=== PATIENT | male | born 1970 | race Caucasian/White ===

== ENCOUNTER 2025-01-31 14:55 | Outpatient (AMB) | payer BC, SELFPAY ==
--- NOTE | 2025-01-31 15:12 | A.OFFPC_ITS ---
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 Intake Note: patient is scheduled to establish care with pcp Craft Center Director Required: No Allergies No Known Allergies Allergy (Verified 01/31/25 15:14) Tobacco use date assessed: 01/31/25 Dental Screening Dental Screen Date: 01/31/25 Did you have a dental visit in the last 12 months?: Yes Did you have a dental problem in the last 6 months where you did not have access to dental care?: No Was dental information given to patient?: Patient has dentist HPI FINISHING INSPECTOR- requesting CPE HPI Details New patient Prior PCP: Dr Asuncion Esteves [place] Last office visit/CPE: Acute issue(s): Dizziness/Brain Fog/Cervicalgia. Imaging including MRI Neg. Dx initially BPPV. Improved with Chiropractic PMHx: Dizziness - Resolved. Vit D Def. SurgHx: None. [place] 5 yrs ago and due - has appt. FHx: GF: Colon [place]. SocHx: Retired. Has 1 son and Moved to [place] to be closer. Nonsmoker, EtOH 1 beer daily. No drugs HPI Comments History of Present Illness Details Documentation assistance for Mahendra Saenz MD, was provided by Holland Davalos,? Airplane Tester on 01/31/2025 at 3:49 PM EST. I, Dr. Saenz, have read, observed, and verified documentation. [facility] Medical History (Updated 01/31/25 @ 15:55 by Holland Davalos) Dizziness Hx of vertigo Family History (Updated 01/31/25 @ 15:19 by HE Bernard) Maternal Grandfather Colon cancer Paternal Grandmother Colon cancer Social History (Updated 01/31/25 @ 15:20 by HE Bernard) Housing: House Patient Tobacco Use Status: Never used Tobacco e-Cigarette/Vaping Use: Never Used Use of substances other than those prescribed or required for medical reasons: No service: No Current occupational status: employed Current occupation: technical support 1 software engineer Current occupational exposures/hazards: No Cognitive needs: No Hearing needs: No Vision needs: Yes Questionnaire PHQ-9 Over the last 2 weeks, how often have you been bothered by any of the following problems? 1. Little interest or pleasure in doing things: not at all 2. Feeling down, depressed, or hopeless: not at all 3. Trouble falling or staying asleep, or sleeping too much: not at all 4. Feeling tired or having little energy: not at all 5. Poor appetite or overeating: not at all 6. Feeling bad about yourself - or that you are a failure or have let yourself or your family down: not at all 7. Trouble concentrating on things, such as reading the newspaper or watching television: not at all 8. Moving or speaking so slowly that other people could have noticed. Or the opposite - being so fidgety or restless that you have been moving around a lot more than usual: not at all 9. Thoughts that you would be better off or of hurting yourself in some way: not at all Total score: 0 Depression Screening Interpretation: Negative Depression Screening Done: Yes 36815 - PHQ-9 Billing: Yes Source: Developed by Drs. Dakota Elizabeth, Carmina Alcantara, Andrés Grace and colleagues, with an educational ian from [employer]. Thrive Questionnaire Date Thrive assessed: 01/31/25 I am a: Patient What is your living situation today?: I have a steady place to live Within the past 12 months, did the food you bought not last and you didn't have the money to get more?: Never true Within the past 12 months, did you worry whether your food would run out before you got money to buy more?: Never true Do you have trouble paying for medicines?: No Do you have trouble getting transportation to medical appointments?: No Do you have trouble paying your heating and electricity bill?: No Do you have trouble taking care of your child, family member or friend?: No Do you have trouble with day-to-day activities such as bathing, preparing meals, shopping, managing finances, etc.?: No Are you currently unemployed and looking for a job?: No Are you interested in more education?: Yes Please select the resources that you would like help with: None Currently or been in a relationship where the following occur: No concerns reported THRIVE Score: 0 AUDIT C Alcohol Use Questionnaire (AUDIT-C) 1. How often do you have a drink containing alcohol?: 4 or more times a week 2. How many drinks containing alcohol do you have on a typical day when you are drinking?: 1 or 2 3. How often do you have six or more drinks on one occasion?: Never Total Score: 4 Score Reviewed/Action Taken: Yes COLETTE-7 AMB Questionnaire COLETTE-7 Date COLETTE - 7 assessed: 01/31/25 Feeling nervous, anxious, or on edge: 0 = Not at all Not being able to stop or control worryin = Not at all Worrying too much about different things: 0 = Not at all Trouble relaxin = Not at all Being so restless that it is hard to sit still: 0 = Not at all Becoming easily annoyed or irritable: 0 = Not at all Feeling afraid as if something awful might happen: 0 = Not at all Total COLETTE-7 score (0-4 normal; 5-9 mild; 10-14 moderate; 15-21 severe): 0 Source: Developed by Drs. Dakota Elizabeth, Carmina Alcantara, Andrés Grace and colleagues, with an educational ian from [employer]. COLETTE-7 Assessment Billing COLETTE-7 Assessment Tool: COLETTE-7 Assessment 22372 Review of Systems Const Denies chills, Denies fatigue, Denies fever(s), Denies headache(s) and Denies weakness ENT Denies dizziness and Denies headache(s) Card Denies chest pain, Denies lightheadedness, Denies dyspnea and Denies other (Palpitations) Resp Denies cough, Denies dyspnea, Denies wheezing and Denies other ( shortness of breath) Musc Denies numbness and Denies tingling Neuro Denies dizziness, Denies headache(s), Denies numbness, Denies tingling, Denies paresthesias and Denies weakness Psych Denies anxiety and Denies depression Endo Denies fatigue Aller/Immun Denies wheezing Physical exam (Primary Care) Vital Signs: Last Vital Signs Temp 98.3 F 01/31/25 15:21 Pulse 73 01/31/25 15:21 Resp 14 01/31/25 15:21 BP 126/78 01/31/25 15:21 Pulse Ox 97 01/31/25 15:21 Oxygen Delivery Method Room Air 01/31/25 15:21 BMI result Body Mass Index 23.8 Tobacco/Smoking Status: Tobacco use Status Tobacco use date assessed 01/31/25 01/31/25 15:26 Patient Tobacco Use Status Never used Tobacco 01/31/25 15:26 e-Cigarette/Vaping Use Never Used 01/31/25 15:26 PHQ-9: PHQ-9 Score PHQ-9: Total score 0 01/31/25 15:32 Depression Screening Interpretation: Negative Thrive Assessment: Date of Thrive Assessment Date Thrive assessed 01/31/25 01/31/25 15:26 Currently or been in a relationship where the following occur: No concerns reported Const General: no acute distress and well developed Nutritional Appearance: well nourished Orientation/consciousness: patient oriented x3 HENMT Head: Yes normocephalic and Yes atraumatic Eyes General: appearance normal, both eyes and all related structures Pupils: Equal, round and reactive pupils present EOM: EOMs intact bilaterally Resp Effort & Inspection: normal respiratory effort Auscultation: clear to auscultation bilaterally Cardio Rate: regular rate Rhythm: regular rhythm Heart sounds: S1 normal heart sound present, S2 normal heart sound present, no gallops, no murmurs and no rubs Neuro General: patient oriented x3 and gait normal Cranial nerves: Yes Equal, round and reactive pupils present Psych Affect: normal affect Coding Level of Care Code New Pt Level 3 (64594) Diagnoses History of dizziness Z87.898 Immunization counseling Z71.85 Laboratory exam ordered as part of routine general medical examination Z00.00 Additional Codes COLETTE-7 Assessment Billing - COLETTE-7 Assessment Tool: COLETTE-7 Assessment 97476 ([id number]) PHQ-9 - 71571 - PHQ-9 Billing: Yes ([id number]) Assessment & Plan Assessment & Plan (1) History of dizziness: Code(s): Z87.898 - Personal history of other specified conditions Category: Medical Plan: History of cervicalgia and dizziness Patient describes an extensive workup including MRI, EKG and echocardiogram. Will request prior records. He notes that symptoms improved with physical therapy/chiropractic Recommending a sit/stand adjustable desk for work environment accomodation and modification. Also recommended he continue exercises he learned in physical therapy. (2) Immunization counseling: Code(s): Z71.85 - Encounter for immunization safety counseling Category: Medical Plan: Recommended COVID booster Recommended flu shot this fall He is up-to-date with his other immunizations (3) Laboratory exam ordered as part of routine general medical examination: Code(s): Z00.00 - Encounter for general adult medical examination without abnormal findings Category: Medical Plan: Check labs Orders: Orders Complete Blood Count Auto Diff Today Z00.00 - Encounter for general adult medical examination without abnormal findings Lipid Panel Today Z00.00 - Encounter for general adult medical examination without abnormal findings Microalbumin, Random (w Creat) Today I10 - Essential (primary) hypertension UA CC w/rflx Micro + Cult Today Z00.00 - Encounter for general adult medical examination without abnormal findings Comprehensive [place]. Panel Fast Today Z00.00 - Encounter for general adult medical examination without abnormal findings Prostate Specific Antigen Scr Today Z12.5 - Encounter for screening for malignant neoplasm of prostate TSH reflex Free T4 Today Z00.00 - Encounter for general adult medical examination without abnormal findings Vitamin D 25-OH Total Today E55.9 - Vitamin D deficiency, unspecified
[2025-01-31 15:21] VITALS: BP 126/78; PULSE 73; RESP 14; TEMP 36.8; O2SAT 97; BMI 23.8
--- OUTSIDE RECORDS SUMMARY | 2025-01-31 16:01 | XMS_ITS | Patient Health Record ---
Author Organization [facility] Address [address] [place] [address] Support Name Relationship Address Phone Bakari Meyer Guarantor Unknown Reason For Referral No Information Immunizations Vaccine Route Administration Date Status Comme nts Novel [id number], all formulations Other 07/12/2009 Administered - Series: 1; PP Hepatitis A Adult IM Intramuscular 01/04/2019 Administe red PP Influenza MDV (0.5ml) Unknown 01/04/2019 Others PP Typhoid Injectable (Typhim Vi) IM Intramuscular 01/04/2019 Administered Problems Problem Type SNOMED Code ICD Code Onset Dates Problem Status W/U Status Risk Notes Problem Vaccination given ([id number]) Encounter for immunization (Z23) Active confirmed Plan Of Treatment No Information Insurance Providers Payer Name Payer Address Payer Phone Subscriber Number Group Number Insured Name Patient Relationship to Insured Coverage Start Date Coverage End Date [id number] Blue Choice PPO POS [address] [place] [address] [id number] MitchBakari Self - patient is the insured 9
--- OUTSIDE RECORDS SUMMARY | 2025-01-31 16:01 | XMS_ITS | Patient Health Record ---
Author [facility] Address [address] [place] [address] Care Team Providers Care Senior Industrial Engineer Name Role Phone Migration, Provider Unavailable Unavailable Reason For Referral No Information Social History Social History Additional Details Category Social Info Options Details Migrated Social History Migrated Social History Smoking Status:UNSPECIFIED Encounters Encounter Location Date Provider [facility] [address] [place] [address] 06/04/2024 [facility] [address] [place] [address] 06/05/2024 Provider Migration Plan Of Treatment No Information Insurance Providers Payer Name Payer Address Payer Phone Subscriber Number Group Number Insured Name Patient Relationship to Insured Coverage Start Date Coverage End Date [facility] [address] [place] [address] [id number] Bakari Meyer Self - patient is the insured 2
== END 2025-01-31 16:48 | disposition home or self-care (01) ==
LOC: HO.HMCFM 14:56
PROVIDERS: PCP Family Medicine; Visit Provider Family Medicine
DX: Z87.898 Personal history of other specified conditions (principal); Z71.85 Encounter for immunization safety counseling; Z00.00 Encounter for general adult medical examination without abnormal findings

== ENCOUNTER → 2025-01-31 14:55 | Outpatient (BNVA) | payer BC, SELFPAY | PROVIDERS: PCP Family Medicine; Visit Provider Family Medicine | DX: Z00.00 Encounter for general adult medical examination without abnormal findings (principal); M54.2 Cervicalgia; E55.9 Vitamin D deficiency, unspecified; Z71.85 Encounter for immunization safety counseling; Z87.898 Personal history of other specified conditions | CPT/HCPCS: 96127 ==

== ENCOUNTER 2025-02-03 07:58 | Outpatient (AMB) | payer BC, SELFPAY ==
--- OUTSIDE RECORDS SUMMARY | 2023-07-19 19:46 | XMS_ITS | Continuity of Care Document ---
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 Phone Maritza Roland DO Unavailable Unavailable Allergies, Adverse Reactions, Alerts Substance Reaction Status Criticality scallops Vomiting Active No Information Medications Medication Instructions Dosage Effective Dates (start - stop) Status Comments K2 Plus D3 1,000 unit-100 mcg tablet take 2 tablet via oral route daily - Active Wal-Phed D 120 mg tablet,extended release take 1 tablet by oral route every 12 hours 120 MG - Active Dramamine 50 mg tablet take 1 tablet by oral route every 6 hours as needed 50 MG - Active Procedures Procedure Date Offic/outpt E&m Estab Mod-hi 2 Telemedic ine Venipuncture Bld Ct; Hg/pltlt Ct Auto/compl 23 Comp Metabolic Panel Vitamin D 25 Hydroxy Includes Fraction(s ) If Performed Prevent E&m Estab Pt; 40-64 Yr 23 Venipuncture Hgb; Glycated Hepatitis C Antibody; Thyroxine; Free Lipid Panel Albumin; Urin Microalbumin Saad Creatinine; Other Source Vitamin D 25 Hydroxy Includes Fraction(s ) If Performed General Health Panel Parathormone Offic/outpt E&m Estab Low-mod Venipuncture Bld Ct; Hg/pltlt Ct Auto/compl 22 Vitamin D 25 Hydroxy Includes Fraction(s ) If Performed Lipid Panel Comp Metabolic Panel Prevent E&m Estab Pt; 40-64 Yr 22 Venipuncture Hgb; Glycated Lipid Panel Thyroxine; Free Prostate Spec Antig; Tot Vitamin D 25 Hydroxy Includes Fraction(s ) If Performed General Health Panel Offic/outpt E&m Estab Mod-hi 2 21 Venipuncture Hgb; Glycated Thyroxine; Free Comp Metabolic Panel Bld Ct; Hg/pltlt Ct Auto/compl 21 Lipid Panel Vitamin D 25 Hydroxy Includes Fraction(s ) If Performed Thyroid Stim Hormone Offic/outpt E&m Estab Low-mod Telemedici ne Prevent E&m Estab Pt; 40-64 Yr 21 Offic/outpt E&m Estab Low-mod 0 Offic/outpt E&m Estab Mod-hi 2 Telemedic ine Prevent E&m Estab Pt; 40-64 Yr 20 Ua Dip Stik/tablet; Wo Micro A 20 Venipuncture Ferritin Iron Cyanocobalamin Iron Binding Capacity General Health Panel Hgb; Glycated Lipid Panel Prostate Spec Antig; Tot Venipuncture Thyroxine; Free Vitamin D 25 Hydroxy Includes Fraction(s ) If Performed Prevent E&m Estab Pt; 40-64 Yr 18 General Health Panel Hgb; Glycated Lipid Panel Prostate Spec Antig; Tot Venipuncture Prevent E&m Estab Pt; 40-64 Yr 17 General Health Panel Hgb; Glycated Lipid Panel Prostate Spec Antig; Tot Venipuncture Offic/outpt E&m Estab Low-mod 7 Offic/outpt E&m Estab Minor 10 10 Offic/outpt E&m New Mod Sever 0 Advance Directives Directive Yes / No Effective Date File Name No Information Encounters Encounter Description Practice Location Reason(s) For Visit Diagnoses Date Provider Providers Copied on Encounter [facility], [address], [place], [place], [id number] , [place] tel: [phone] [facility] No Information 4 Asuncion Salas. [address], [place], [id number], [place]. tel:[phone] Offic/outpt E&m Estab Mod-hi [address] [facility], [address], [place], [place], [id number] , [place] tel: [phone] [facility] . (chief complaint) Vitamin D deficiencyDizzine 3 Jerald Reyez. [address], [place], [id number], [place]. tel:[phone] Referring Provider: Maritza Saleh, [address] [place], [address] . tel:[phone] 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 [address] [place] [address], [id number], [place]. tel:[phone] Referring Provider: Maritza Saleh, [address] [place] [address], [address] . tel:[phone] [facility], [address], [place], [place], [id number] , [place] tel: [phone] [facility] Obstructive sleep apnea 3 Asuncion Salas. [address], [place], [id number], [place]. tel:[phone] Prevent E&m Estab Pt; 40-64 Yr Medical [facility], [address], [place], [place], [id number] , [place] tel: [phone] [facility] comp exam (chief complaint) Encounter for general adult medical examination without abnormal findingsCervicalg iaRestless legOther fatigue 3 Asuncion Salas. [address] [place] [address], [id number], [place]. tel:[phone] Referring Provider: Maritza Saleh, [address] [place] [address], [address] . tel:[phone] [facility], [address], [place], [place], [id number] , [place] tel: [phone] [facility] Encntr for general adult medical exam w/o abnormal findings 3 Asuncion Salas. [address] [place] [address], [id number], [place]. tel:[phone] Referring Provider: Maritza Saleh, [address] [place] [address], [address] . tel:[phone] [facility], [address], [place], [place], [id number] , [place] tel: [phone] [facility] Annual physical exam 3 Asuncion Salas. [address] [place] [address], [id number], [place]. tel:[phone] Offic/outpt E&m Estab Low-mod [facility], [address], [place], [place], [id number] , [place] tel: [phone] [facility] followup (chief complaint) Abdominal bloatingVitamin D deficiencyCervica lgia 0 2 Asuncion Salas. [address], [place], [id number], [place]. tel:[phone] Referring Provider: Maritza Saleh, [address] [place] [address], [address] . tel:[phone] [facility], [address], [place], [place], [id number] , [place] tel: [phone] [facility] Abdominal distension (gaseous)Vitamin D deficiency, unspecified 2 Asuncion Salas. [address] [place] [address], [id number], [place]. tel:[phone] Referring Provider: Maritza Saleh, [address] [place] [address], [address] . tel:[phone] [facility], [address], [place], [place], [id number] , [place] tel: [phone] [facility] Vitamin D deficiencyAnemia, unspecified typeAbdominal bloating 2 Asuncion Salas. [address], [place], [id number], [place]. tel:[phone] Prevent E&m Estab Pt; 40-64 Yr Medical [facility], [address], [place], [place], [id number] , [place] tel: [phone] [facility] comp exam (chief complaint)c hronic conditions (chief complaint) Encounter for general adult medical examination without abnormal findingsVitamin D deficiencyHistory of COVID-19Cervicalg iaAbdominal bloating 2 Asuncion Salas. [address] [place] [address], [id number], [place]. tel:[phone] Referring Provider: Maritza Saleh, [address] [place] [address], [address] . tel:[phone] [facility], [address], [place], [place], [id number] , [place] tel: [phone] [facility] Other mcfp (current) drug therapyEncounter for screening for malignant neoplasm of prostateVitamin D deficiency, unspecified 2 Asuncion Salas. [address] [place] [address], [id number], [place]. tel:[phone] Referring Provider: Maritza Saleh, [address] [place] [address], [address] . tel:[phone] Offic/outpt E&m Estab Mod-hi 2 [facility], [address], [place], [place], [id number] , [place] tel: [phone] [facility] Follow up (chief complaint)c hronic conditions (chief complaint) Other supervisor hairspring fabrication (current) drug therapyVitamin D deficiencyHistory of COVID-19Cervicalg iaScreening for prostate cancer 1 Asuncion Salas. [address] [place] [address], [id number], [place]. tel:[phone] Referring Provider: Maritza Saleh, [address] [place] [address], [address] . tel:[phone] [facility], [address], [place], [place], [id number] , [place] tel: [phone] [facility] No Information 1 Asuncion Salas. [address] [place] [address], [id number], [place]. tel:[phone] [facility], [address], [place], [place], [id number] , [place] tel: [phone] [facility] Encntr for general adult medical exam w/o abnormal findingsVitamin D deficiency, unspecified Jun- 1 Asuncion Salas. [address], [place], [id number], [place]. tel:[phone] Referring Provider: Maritza Saleh, [address] [place] [address], [address] . tel:[phone] Offic/outpt E&m Estab Low-mod Telemedicine Medical [facility], [address], [place], [place], [id number] , [place] tel: [phone] [facility] recurrent headaches (chief complaint) Migraine without status migrainosus, not intractable, unspecified migraine type 1 Andrea Henriquez. [address], [place], [id number], [place]. tel:[phone] Referring Provider: Maritza Saleh, [address] [place] [address], [address] . tel:[phone] Prevent E&m Estab Pt; 40-64 Yr [facility], [address], [place], [place], [id number] , [place] tel: [phone] [facility] Preventive exam (chief complaint)c hronic conditions (chief complaint) Encounter for general adult medical examination without abnormal findingsVitamin D deficiencyCervica lgiaScreening for prostate cancer 1 Asuncion Salas. [address] [place] [address], [id number], [place]. tel:[phone] Referring Provider: Maritza Saleh, [address] [place] [address], [address] . tel:[phone] [facility], [address], [place], [place], [id number] , [place] tel: [phone] [facility] No Information Sep-0 1 Asuncion Salas. [address] [place] [address], [id number], [place]. tel:[phone] [facility], [address], [place], [place], [id number] , [place] tel: [phone] [facility] Dizziness and giddiness Nov-0 202 0 Asuncion Salas. [address], [place], [id number], [place]. tel:[phone] Offic/outpt E&m Estab Low-mod [facility], [address], [place], [place], [id number] , [place] tel: [phone] [facility] chronic conditions (chief complaint) Dizziness Nov-0 2 0 Evie Luque. [address] [place] [address], [id number], [place]. tel:[phone] Offic/outpt E&m Estab Mod-hi 2 Telemedicine Medical [facility], [address], [place], [place], [id number] , [place] tel: [phone] [facility] Polyp of colon, unspecified part of colon, unspecified typeDizzinessNon- celiac gluten sensitivityCervic algia Sep-0 0 Nicola Moreno. [address] [place] [address], [id number], [place]. tel:[phone] Referring Provider: Maritza Saleh, [address] [place] [address], [address] . tel:[phone] Prevent E&m Estab Pt; 40-[address] [facility], [address], [place], [place], [id number] , [place] tel: [phone] [facility] Adult general medical examVitamin D deficiencyCervica lgiaSyncope, unspecified syncope typeScreening for colon cancerAbdominal bloatingAnemia, unspecified type Mar-0 0 Asuncion Salas. [address] [place] [address], [id number], [place]. tel:[phone] Referring Provider: Maritza Saleh, [address] [place] [address], [address] . tel:[phone] [facility], [address], [place], [place], [id number] , [place] tel: [phone] [facility] Adult general medical examVitamin D deficiencyScreeni ng for prostate cancer 0 Asuncion Salas. [address], [place], [id number], [place]. tel:[phone] Referring Provider: Maritza Saleh, [address] [place], [address] . tel:[phone] Prevent E&m Estab Pt; 40-64 Yr [facility], [address], [place], [place], [id number] , [place] tel: [phone] [facility] Adult general medical examDizzinessCerv icalgiaScreening for prostate cancer 8 Asuncion Salas. [address], [place], [id number], [place]. tel:[phone] Referring Provider: Maritza Saleh, [address] [place] [address], [address] . tel:[phone] Prevent E&m Estab Pt; 40-64 Yr [facility], [address], [place], [place], [id number] , [place] tel: [phone] [facility] Adult general medical examVitamin D deficiencyCervica lgiaTesticular cystScreening for prostate cancerScreening for colon cancer 7 Asuncion Salas. [address], [place], [id number], [place]. tel:[phone] Referring Provider: Maritza Saleh, [address] [place], [address] . tel:[phone] Offic/outpt E&m Estab Low-mod [facility], [address], [place], [place], [id number] , [place] tel: [phone] [facility] CervicalgiaVitami n D deficiencyTesticu lar cyst Mar-0 2-201 7 Asuncion Salas. [address], [place], [id number], [place]. tel:[phone] Referring Provider: Maritza Saleh, [address] [place], [address] . tel:[phone] Offic/outpt E&m [address], [facility] [address] [place] [address], [id number] , [place] tel: [phone] [facility] CONJUNCTIVITIS, ACUTE Murtaza-2 4-201 0 Caroline Gill. [address] [place] [address], [id number], [place]. tel:[phone] Referring Provider: Jairo Lutz, [address] [place] [address], [address] . tel:[phone] Offic/outpt E&m [facility], [address], [place], [place], [id number] , [place] tel: [phone] [facility] CONJUNCTIVITIS, ACUTE Murtaza-1 7-201 0 Caroline Gill. [address] [place] [address], [id number], [place]. tel:[phone] Referring Provider: Jairo Lutz, [address] [place] [address], [place], [address] . tel:[phone] Family History Family Member Type Diagnosis Age At Onset grandfather (materna Problem (finding) Cancer of the P rostate Father Problem (finding) Meniere Immunizations Vaccine Date Status Comments Flucelvax Quad (6 mos and up ) 0.5mL prefilled syringe, preservative-free administered Source: Source Unspe cified COVID-19 Vaccine (Moderna) administered S ource: Source Unspecified Zoster (Shingles/Zostavax) administered S ource: Source Unspecified Shingrix administered Source: Source Unspecified COVID-19 Vaccine (Moderna) administered S ource: Source Unspecified Flucelvax Quad (2yrs and up) 0.5mL prefilled syringe, preservative-free administered Source: Source Unspe cified COVID-19 Vaccine (Moderna) administered S ource: Source Unspecified COVID-19 Vaccine (Moderna) administered S ource: Source Unspecified Flucelvax Quad (4 years and up) 0.5mL prefilled syringe, preservative-free administered Source: Source Unspe cified Tdap administered Source: Source Unspecified Payers Payer name Insurance type Covered constitution party ID Authoriza tion(s) BCBS PPO/POS BL [id number] Social History Type Description Quantity Date Captured Comments Alcohol Use Details Unknown Caffeine Use Details Unknown Tobacco Use Status No Information Smoking Status No Information Sex Male Chief Complaint And Reason For Visit No Information Reason For Referral Reason For Referral No Information Plan Of Treatment Date Type Action Status Goal Influenza vaccine. Due on due Goal Hepatitis C screening due Goal Depression screening. Due on due Goal Preventative Exam. Due on due Goal Zoster vaccine (2nd) due Goal Colonoscopy. Due on due Goal Zoster vaccine (1st) due Goal Preventative Exam. Due on due Goal Colonoscopy. Due on due Goal Depression screening. Due on due Goal Hepatitis C screening due Goal Zoster vaccine (2nd) due Goal Influenza vaccine. Due on due Goal Zoster vaccine (1st) due Goal Zoster vaccine (2nd) due Goal Preventative Exam. Due on due Goal Hepatitis C screening due Goal Influenza vaccine. Due on due Goal Colonoscopy. Due on due Goal Depression screening. Due on due Goal Zoster vaccine (1st) due Goal Zoster vaccine (1st) due Goal Preventative Exam. Due on due Goal Influenza vaccine. Due on due Goal Zoster vaccine (2nd) due Goal Depression screening. Due on due Goal Hepatitis C screening due Goal Colonoscopy. Due on due Goal Depression screening. Due on due Goal Zoster vaccine (2nd) due Goal Preventative Exam. Due on due Goal Zoster vaccine (1st) due Goal Influenza vaccine. Due on due Goal Colonoscopy. Due on due Goal Hepatitis C screening due Goal Influenza vaccine. Due on due Goal Depression screening. Due on due Goal Colonoscopy. Due on due Goal Preventative Exam. Due on due Goal Zoster vaccine (2nd) due Goal Zoster vaccine (1st) due Goal Zoster vaccine (1st) due Goal Hepatitis C screening. Due o n due Goal Influenza vaccine. Due on due Goal Depression screening. Due on due Goal Colonoscopy. Due on due Goal Zoster vaccine (2nd) due Goal Preventative Exam. Due on due Goal Zoster vaccine (). Due on due Goal Preventative Exam. Due on due Goal Colonoscopy. Due on due Goal Hepatitis C screening. Due o n due Goal Depression screening. Due on due Goal Influenza vaccine. Due on No due Goal Zoster vaccine (). Due on due Goal Hepatitis C screening. Due o n due Goal Depression screening. Due on due Goal Colonoscopy. Due on due Goal Preventative Exam. Due on due Goal Influenza vaccine. Due on No due Goal Influenza vaccine. Due on No due Goal Colonoscopy. Due on due Goal Depression screening. Due on due Goal Preventative Exam. Due on due Goal Preventative Exam. Due on due Goal Influenza vaccine. Due on No due Goal Colonoscopy. Due on due Goal Depression screening. Due on due Goal Colonoscopy. Due on due Goal Preventative Exam. Due on due Goal Depression screening. Due on due Goal Influenza vaccine. Due on No due Goal Depression screening. Due on due Goal Colonoscopy. Due on due Goal Influenza vaccine. Due on No due Goal Preventative Exam. Due on Ma due Goal Preventative Exam. Due on Ma due Goal Depression screening. Due on due Goal Colonoscopy. Due on due Goal Influenza vaccine. Due on Oc due Goal Depression screening. Due on due Goal Influenza vaccine. Due on Oc due Goal Colonoscopy. Due on due Goal Colonoscopy. Due on due Goal Influenza vaccine. Due on Oc due Goal Depression screening. Due on due Goal Colonoscopy. Due on due Goal Influenza vaccine. Due on Ma due Goal Depression screening. Due on due Goal Tdap. Due on due Goal Td vaccine. Due on due Goal Colonoscopy. Due on due Goal Cologuard. Due on 0 due Goal Influenza vaccine. Due on No due Goal Depression screening. Due on due Goal Lipid panel. Due on 025 due Goal Tdap. Due on due Goal Td vaccine. Due on due Goal Colonoscopy. Due on 030 due Goal Cologuard. Due on 0 due Goal Influenza vaccine. Due on due Goal Depression screening. Due on due Goal Lipid panel. Due on 025 due Referral Ordered: Mitchell Weaver DDS (related to Obstructive sleep apnea) ordered Referral Referred To: Mitchell Weaver DDS [address], [place], [phone] Ordered: Referrals: Mitchell Weaver DDS. Evaluate and treat Appointment date/timeframe: 2 (within 7 days) ordered Referral Referred To: [facility] [address] [place], [phone] Ordered: Referrals: lth -Physical Therapy. [facility]. Evaluate and treat ordered Referral Referred To: [address], [phone] Ordered: Diagnostic Order: MRI Brain/IAC/Pituitary w/ and w/out contrast ordered History Of Present Illness Encounter Date Complaint History Of Prese nt Illness . Vitamin D defici ency:Had lab work this week which revealed vitamin D to be normal. He is on vitamin D3 1000 unit- 100 mcg.Dizziness:Had dizzy spells which has improved. He is diet controlled and maintaining.Additional comments:Screening labs:Had lab work this week which revealed kidney and liver function to be normal, electrolytes was normal, blood counts are normal.Immunization:Up-to-date with influenza vaccination.Had COVID-19 booster. comp exam Prior to seeing the pt today, their chart was reviewed which included previous notes, consults notes, labs, as well as imaging reports. All care guidelines and preventative health issues were reviewed and discussed with pt at the visit. Labs discussed with ptEncounter for general adult medical examination without abnormal findings:GI: Has regular bowel movements now. Denies blood in stools. Has had bloating since long still has it but improving a bit. Tries to eat on regular time and observes how much he consumes. Gave up on beer for a month and has gained weight now. His grandmother due to diverticulitis.Diet and exercise: Tries to follow a regular moderate diet now, [id number] mostly. Does not eat meat, has more of vegetables, fruits and roughage. Occasionally has some salads and flax seeds too. Exercises regularly including walking, stretching, etc. Has had weight gain was 155 lbs and now it is 175 lbs.Colorectal screening: Up-to-date. Last screening colonoscopy was done on February [address] Farley. Had a few polyps removed everything else was normal. Due for next colonoscopy in 2024, is on a five-year plan.Immunization: Up-to-date with influenza, Shingrix vaccination. Has had two COVID-19 boosters. States his parents were infected with omicron, denies getting COVID-19 infection in the past. Requests for booster vaccine.Screening labs: W.B.Cs and R.B.Cs are normal, no anemia. Takes K2 plus multivitamin tablets. Blood sugar levels are normal, fasting sugar level is 86 mg/dl. Hba1c is 5.5%. Sodium, potassium, and calcium levels are good. Kidney and liver functions are good. Non-reactive for hepatitis C antibody. LDL is at 122 mg/dl, which is a bit high should be below 100 mg/dl and HDL at 45 mg/dl was at 62 mg/dl. Does not have anything much with high butter or anything. LDL/HDL ratio is 4.1, should be below 5 mg/dl. Thyroid levels are good. Vitamin D level is at 47 ng/ml.Prostate cancer screening: Up-to-date. No prostate issues. Denies any testicle pain or notice any cyst. Ophthalmology: Due. Denies any vision issues. Is planning to get spectacles as screen time has increased.Dermatology: Had aging lesions on the face and scalp. Used moisturizing lotions and whitening creams. Lesion has improved.Cervicalgia:States neck has no issues now. Does neck exercise regularly. Has occasional popping and crankiness according to the age. Denies headache and passing out.Restless leg; Other fatigue:States the sleep has been normal lately. Feels the legs move when he tries to change the position while sleeping. Is not sure about if this anything related to the amount of water intake. Occasionally has snoring and breathing difficulty. States his is also not a good sleeper.At times also gets apneic at night sometimes. Tries using the sleep mask as well. Denies pain in the legs during the day. followup Prior to seeing the pt today, their chart was reviewed which included previous notes, consults notes, labs, as well as imaging reports. All care guidelines and preventative health issues were reviewed and discussed with pt at the visit. Labs discussed with ptPatient has given consent to record this visit for documentation in their clinical record.Abdominal bloating:Was on gluten-free diet. Started having gluten when the issues resolved, but started feeling bloating again. Reduced intake of gluten, and has been feeling better. Antibodies for celiac disease were negative. Had colonoscopy, and it was normal. Had a couple of polyps, is on a five-year plan. Had endoscopy with Dr. Farley. Has not taken Dramamine for one month, used to take it as needed. Denies having chest pain or shortness of breath. Does not have bloating today. Drinks four cups of coffee.Vitamin D deficiency:Takes vitamin D with K2 and multivitamin. Vitamin D level has been 40-50 ng/mL since a couple of tests.Cervicalgia:Took ibuprofen three tablets if he experienced any tension in neck. Does stretches for neck. Does not have headache. Is on pseudoephedrine if needed. Takes allergy medications every morning.Additional commentsVitals:Blood pressure is 118/74 mmHg, heart rate is 73 beats per minutes, and weight is stable today.Screening labs:LDL is 115 mg/dL. HDL is 50 mg/dL and triglycerides are 100 mg/dL. Takes [id number] coffee. Eats fish occasionally. Eats vegetables. Kidney and liver function are normal. Sodium and potassium levels are normal. Calcium levels are normal. WBC and RBC counts are normal. RBC's levels were low in the past. Fasting blood sugar level is under 100 mg/dL.Dermatological screening:Has an appointment with [facility] in one month. Has a spot on his skin, looks like a bruise. Does not have pain. Use a cream sparingly on age spots on hands. Uses SPF 15 to protect hands.Immunization:Up-to-date with flu vaccine, shingles vaccine, and new COVID-19 booster vaccine. comp exam Prior to seeing the pt today, their chart was reviewed which included previous notes, consults notes, labs, as well as imaging reports. All care guidelines and preventative health issues were reviewed and discussed with pt at the visit. Lab discussed with pt Uptodate on colonoscopy denies any abdominal issues.Got shingrix vaccine the first one. chronic conditions *See Chronic Conditions HPI Follow up Pt doing well ov erall. Discussed labs, vaccines, and preventative screening. Flu vaccine and covid booster UTD. Given shingrix info. Prior to seeing the pt today, their chart was reviewed which included previous notes, consults notes, labs, as well as imaging reports. All care guidelines and preventative health issues were reviewed and discussed with pt at the visit. chronic conditions *See Chronic Conditions HPI chronic conditions (comments) St mustafa his stomach has been well-controlled lately. No bloating. Still trying to avoid gluten. Eats a vegetarian diet with occ salmon but denies ever eating chicken or beef. Uses smart balance butter. Drinks coffee with creamer. Discussed vegan butter and minimizing creamer. Discussed diet and exercise. Labs 06/17/21 LDL 130 Choles 203 HDL 62 Trig 56 recurrent headaches Telemedicine visit for eval of recurrent headaches that he thinks are due to migraines. he states that he notices it is weather related. He states that it typically is preceded by tinnitus, some dizziness. Sometimes takes Dramamine. He states that he was visiting his mom and tried one of her Relpax which really helped the headaches. he is going on vacation and would like some Relpax to take with them. chronic conditions *See Chronic Conditions HPI Preventive exam Patient states d oing well overall. Discussed labs and vaccines with patient. Pt received first dose of COVID-19 vaccine and states tolerated well. No vision changes. No bleeding issues. No bladder issues. States normal bowel movements. Denies any bilateral upper or lower extremities numbness/tingling. chronic conditions (comments) [facility] mustafa has not had any dizzy spells or syncope in about a year. States has not taken a meclizine in about a year and taking Dramamine only once every few months. States he believes they are tied to neck pain, the weather, and allergies. States he is able to catch start of symptoms before they become severe. Pt still cutting out gluten. No longer experiencing abdominal bloating. chronic conditions *See Chronic Conditions HPI Functional Status Date Functional Assessmen t No Information Instructions Date Instruction Additional Infor anali - Continue taking Vi tamin D3- Keep up with lab appointments and follow up visits- Vitamin d rich foods to eat including but not limited to kale, mushrooms, green leafy vegetables such as spinach, yogurt and vit d Related to Vitamin D deficiency Your physical/wellne ss visit was completed today.Preventative screenings are up to date: Colonoscopy-dueYour lab work was ordered/reviewed. Please contact office if you still have questionsYour vaccines are up to date; consider Shingrix is the new shingles vaccine that is recommended. Check with your pharmacy for cost and availability.Continue all medications as currently prescribed.Continue seeing all specialists as recommended.Exercise and a healthy diet are important to incorporate into your daily routine.(Men/Women) should perform a self monthly (testicular/breast) exam looking for lumps/bumps. Call office with questions.You are due for your physical/wellness visit in 1 year. You may need follow up on a more frequent basis for other chronic conditions.Please do not hesitate to contact me/office if you have any additional questions. Related to Encounter for general adult medical examination without abnormal findings Home sleep study Related to Othe r fatigue Continue with minimjojo carterng gluten in your diet Related to Abdominal bloating Continue vitamin d Related to Vi tamin D deficiency Your physical/wellne ss visit was completed today.Preventative screenings are up to date: Colonoscopy-dueYour lab work was ordered/reviewed. Please contact office if you still have questionsYour vaccines are up to date; consider Shingrix is the new shingles vaccine that is recommended. Check with your pharmacy for cost and availability.Continue all medications as currently prescribed.Continue seeing all specialists as recommended.Exercise and a healthy diet are important to incorporate into your daily routine.(Men/Women) should perform a self monthly (testicular/breast) exam looking for lumps/bumps. Call office with questions.You are due for your physical/wellness visit in 1 year. You may need follow up on a more frequent basis for other chronic conditions.Please do not hesitate to contact me/office if you have any additional questions. Related to Encounter for general adult medical examination without abnormal findings Continue with the st oscar for his neck Related to Cervicalgia Recommend waiting un august before getting the shingles vaccine Related to Other [facility] (current) drug therapy Contact me if sympto ms worsen. Continue doing stretches/exercises Related to Cervicalgia Will continue to monitor. Relate d to History of COVID-19 Start taking 1,000 I U vitamin D3 + K2 daily - Keep up with lab appointments and follow up visits - Vitamin d rich foods to eat including but not limited to kale, mushrooms, green leafy vegetables such as spinach, yogurt and vit d Related to Vitamin D deficiency Discussed could have some Relapax to use as needed. Advised to monitor how frequently he needs to take it. May need to take a preventive medication if headaches occur frequently. Related to Migraine without status migrainosus, not intractable, unspecified migraine type Continue doing exercises. Relate d to Cervicalgia - Keep up with lab a ppointments and follow up visits - Vitamin d rich foods to eat including but not limited to kale, mushrooms, green leafy vegetables such as spinach, yogurt and vit d Related to Vitamin D deficiency Your physical/wellne ss visit was completed today.Preventative screenings are up to date:Your lab work was ordered/reviewed. Please contact office if you still have questionsYour vaccines are up to date; Continue all medications as currently prescribed.Continue seeing all specialists as recommended.Exercise and a healthy diet are important to incorporate into your daily routine.Men should perform a self monthly testicular exam looking for lumps/bumps. Call office with questions.You are due for your physical/wellness visit in 1 year. You may need follow up on a more frequent basis for other chronic conditions.Please do not hesitate to contact me/office if you have any additional questions. Related to Encounter for general adult medical examination without abnormal findings Will refer to Vestib ular Training Exercise. Related to Dizziness Your physical/wellne ss visit was completed today.Preventative screenings are up to date: Colonoscopy will be due this year.Your lab work was ordered/reviewed. Please contact office if you still have questionsYour vaccines are up to date; consider Shingrix is the new shingles vaccine that is recommended. Check with your pharmacy for cost and availability.Continue all medications as currently prescribed.Continue seeing all specialists as recommended.Exercise and a healthy diet are important to incorporate into your daily routine.Men should perform a monthly testicular exam looking for lumps/bumps. Call office with questions.You are due for your physical/wellness visit in 1 year. You may need follow up on a more frequent basis for other chronic conditions.Please do not hesitate to contact me/office if you have any additional questions. - Continue taking Vi tamin D- Keep up with lab appointments and follow up visits- Vitamin d rich foods to eat including but not limited to kale, mushrooms, green leafy vegetables such as spinach, yogurt and vit d Improved since dizzi ness is improvedPlease contact us if symptoms present Greatly improved wit h diet changesTaking medication PRNContact us for increase in symptoms/concerns Changed and improved diet and doing great Seeing specialistEat ing healthy dietFollow up colonoscopy in 5 yearsContact us for any questions/concerns Assessments Type Assessment Date No Information Patient Care Teams Name Effective Dates (start - stop) Status Members Core Team - active Bashir Martinez.Se boni Kumar, [address] [facility], [place], [address].
--- OUTSIDE RECORDS SUMMARY | 2025-02-03 08:01 | XMS_ITS | Patient Health Record ---
Author Organization [facility] Address [address] [place] [address] Care Team Providers Care Dye Tank Tender Name Role Phone Migration, Provider Unavailable Unavailable Reason For Referral No Information Social History Social History Additional Details Category Social Info Options Details Migrated Social History Migrated Social History Smoking Status:UNSPECIFIED Encounters Encounter Location Date [facility] [address] [place] [address] 06/04/[address] [facility] [facility] [address] [place] [address] 06/05/2024 Provider Migration Plan Of Treatment No Information Insurance Providers Payer Name Payer Address Payer Phone Subscriber Number Group Number Insured Name Patient Relationship to Insured Coverage Start Date Coverage End Date [facility] [address] [place] [address] [id number] Bakari Meyer Self - patient is the insured 2
--- OUTSIDE RECORDS SUMMARY | 2025-02-03 08:01 | XMS_ITS | Patient Health Record ---
Author Organization [facility] Address [address] [place] [address] Support Name Relationship Address Phone Bakari Meyer Guarantor Unknown Reason For Referral No Information Immunizations Vaccine Route Administration Date Status Comme nts Novel [id number], all formulations Other 07/12/2009 Administered - Series: 1; PP Hepatitis A Adult IM Intramuscular 01/04/2019 Administe red PP Influenza MDV (0.5ml) Unknown 01/04/2019 Others PP Typhoid Injectable (Typhim Vi) IM Intramuscular 01/04/2019 Administered Problems Problem Type SNOMED Code ICD Code Onset Dates Problem Status W/U Status Risk Notes Problem Vaccination given ([id number]) Encounter for immunization (Z23) Active confirmed Plan Of Treatment No Information Insurance Providers Payer Name Payer Address Payer Phone Subscriber Number Group Number Insured Name Patient Relationship to Insured Coverage Start Date Coverage End Date [id number] PPO POS [address] [place] [address] [phone] [id number] [id number] Self - patient is the insured 9
--- NOTE | 2025-02-03 08:15 | MHC.OFFVIS ---
Vital Signs 02/03/25 08:16 Height 5 ft 11.7 in Weight 173 lb BMI 23.7 BP 117/63 Blood Pressure Location Lt brachial Position Sitting Pulse 68 Pulse Oximetry (%) 98 Oxygen Delivery Method Room Air Intake Visit Reasons: colo screening Intake Note: Patient cc: Patient new consult for 2nd pre Colonoscopy screening. Patient denies any GI issues. Taxicab Starter Required: No Accompanied by: Self / Same As Patient Allergies scallops Allergy (Mild, Verified 02/03/25 08:43) Vomiting HPI HPI colo screening: Details: Patient is a 55-year-old male with PMH of vitamin-D deficiency. Referred by PCP for pre colonoscopy screening This will be Bakari's second colonoscopy, with the first having been conducted five years ago in [place] (see scanned documents). He mentions having occasional digestive issues, specifically gas and bloating, which he initially suspected to be related to gluten sensitivity. After making dietary changes, including a primarily plant-based diet, increased water intake, and smaller portion sizes, he noticed a decrease in frequency of discomfort from multiple times to approximately one to two episodes per month. Previously, the symptoms were more frequent. The discomfort is typically localized in the epigastric region, just below the rib cage, and does not present with a burning sensation. He has no symptoms of nausea, vomiting, diarrhea, or constipation. Patient denies: fever/chills, appetite changes, pyrosis, regurgitation,dysphasia, unintentional wt loss or melena/hematochezia. Social hx: -1 beer/day -denies recreational drug use -non-smoker -Diet: Primarily plant-based, avoids meat; minimal sugar intake. -Recently relocated to [facility] to be closer to son in [facility] in [place]. Previously resided in [place] for 20 years. - family hx as below -denies personal hx of CA -denies significant cardiopulmonary history -tolerated anesthesia in the past without difficulty. PFSH Medical History (Updated 02/03/25 @ 09:14 by Nicki John CNP) Epigastric pain Colon cancer screening Dizziness Hx of vertigo Surgical History (Updated 02/03/25 @ 08:21 by Sabrina Gabriel) History of vasectomy Family History Maternal Grandfather Colon cancer Paternal Grandmother No problems noted. Paternal Grandfather Colon cancer Social History Housing: House Patient Tobacco Use Status: Never used Tobacco e-Cigarette/Vaping Use: Never Used service: No Current occupational status: employed Current occupation: front end software engineer Current occupational exposures/hazards: No Cognitive needs: No Hearing needs: No Vision needs: Yes Review of Systems Const Reports as per HPI ENT Reports as per HPI Card Reports as per HPI Resp Reports as per HPI GI Reports as per HPI Reports as per HPI Physical Exam Vital Signs: Last Vital Signs Pulse 68 02/03/25 08:16 BP 117/63 02/03/25 08:16 Pulse Ox 98 02/03/25 08:16 Oxygen Delivery Method Room Air 02/03/25 08:16 BMI result Body Mass Index 23.7 Const General: healthy appearing, no acute distress and well developed Nutritional Appearance: average body habitus Orientation/consciousness: patient oriented x3 HEENT Head: Yes normal to inspection, Yes normocephalic and Yes atraumatic Face and sinus: Yes normal facial exam Eyes General: appearance normal, both eyes and all related structures Neck Neck: Yes normal visual inspection Resp Effort & Inspection: normal respiratory effort, able to speak in complete sentences, no tracheal deviation and symmetric chest movement Auscultation: clear to auscultation bilaterally Cardio Jugular venous distension: no JVD Rate: regular rate Rhythm: regular rhythm Heart sounds: S1 normal heart sound present, S2 normal heart sound present, no gallops and no murmurs GI Inspection: Yes normal to inspection and No distended Palpation (GI): Soft to palpation, not firm, nontender and No hepatosplenomegaly present Auscultation: normal bowel sounds Neuro General: patient oriented x3 Gait exam (Neuro): Normal gait present Psych Appearance: grossly normal Mental Status: mental status grossly normal Speech and movement: Normal speech and movement present Affect: normal affect Attitude: cooperative Thought process: Normal thought process present Thought content: Normal thought content present Insight: Good insight present (Psych) Judgement: Good judgement present (Psych) Assessment & Plan Assessment & Plan (1) Colon cancer screening: Comment: 02/16/2020 colonoscopy complete with adequate prep-polypectomy ( pathology not available), internal hemorrhoids Code(s): Z12.11 - Encounter for screening for malignant neoplasm of colon Category: Medical Plan: Due for a screening colonoscopy. Second degree relative with history of CRC Medications: -prescriptions for laxative tablets and MiraLax sent to pharmacy; instructions for Gatorade purchase and clear liquid diet given. Patient educated on scheduling process, procedure preparation, including avoiding certain foods and ensuring clear liquid intake Advised on necessity for ride post-procedure due to sedation. (2) Epigastric pain: Comment: 02/16/2020 EGD ( [facility])-normal with duodenum biopsy, pathology not available Code(s): R10.13 - Epigastric pain Category: Medical Plan: Chronic with notable improvement following lifestyle modification. Possible dyspepsia or functional gastrointestinal disorder Additional Tests: upper endoscopy to re-evaluate esophagus and stomach due to recurrent symptoms and unknown pathology findings. Medications:Bakari declined any pharmacological management, prefers to manage holistically Lifestyle Modifications: -Continue with a primarily plant-based diet. -Increase fluid intake. -Consume smaller portions and maintain regular exercise. Advised returning to the clinic if new or concerning symptoms arise before the scheduled procedure. Plan Follow-up after colonoscopy or sooner as needed Time: I spent a total of 30 minutes on the date of encounter which includes: Preparing to see the patient (reviewed previous documentation, test results and medical history) Performing a medically appropriate exam and/or evaluation Ordering medications, tests, and procedures Documenting clinical information in the health record Medications: New bisacodyl Take four tablets once for 1 day per colonoscopy instructions 5 mg PO ONCE 4 tabs 0RF 1 day polyethylene glycol 3350 (Miralax) per colonoscopy prep instructions 238 grams PO ONCE 238 grams 0RF Coding Level of Care Code New Pt New Pt Level 3 (57131) Patient Type New Diagnoses Colon cancer screening Z12.11 Epigastric pain R10.13
[2025-02-03 08:16] VITALS: BP 117/63; PULSE 68; O2SAT 98; BMI 23.7
== END 2025-02-03 08:53 | disposition home or self-care (01) ==
LOC: HO.HGI 07:59
PROVIDERS: PCP Family Medicine; Visit Provider Nurse Practitioner Family
DX: Z01.818 Encounter for other preprocedural examination (principal); Z12.11 Encounter for screening for malignant neoplasm of colon; R10.13 Epigastric pain
CPT/HCPCS: S0285